=== PATIENT | female | born 1955 | race Caucasian/White ===

== ENCOUNTER 2024-12-30 06:07 | Emergency (ER) | payer MEDICARE, SELFPAY ==
--- NOTE | ~2024-12-30 | CT_ITS ---
CT HEAD NON-CONTRAST CT C-SPINE Clinical History: GLF 2200; intermitt RLE weakness 2 wks Comparison: None Technique: Unenhanced axial images skull base to vertex. Coronal, sagittal reformats. Axial images thoracic inlet to skull base. Sagittal and coronal reformats. CT images acquired with automatic exposure control for dose reduction DLP: 605 mGy-cm Findings: Head: Age-related atrophy. White matter changes, typically chronic microvascular ischemic disease. Lacune right basal ganglia. Lacune right centrum semiovale. Sulci, ventricles: Unremarkable. No intracerebral hemorrhage. No evidence acute territorial infarct. No mass effect, midline shift, intra-/extra-axial fluid collection. Bony calvarium intact. Visualized paranasal sinuses: Clear. Mastoid air cells: Clear. C-spine: No acute fracture or listhesis. Reversal of normal cervical lordosis. Moderate degenerative changes. Prevertebral soft tissues within normal limits. Visualized lung apices: Clear. Visualized thyroid: Unremarkable. No enlarged cervical nodes. IMPRESSION: HEAD: 1. No acute intracranial findings. C-SPINE: 1. No acute fracture. Reviewed, dictated and finalized at location R. ARY WORKER IMPRESSION: HEAD: 1. No acute intracranial findings. C-SPINE: 1. No acute fracture.
--- NOTE | ~2024-12-30 | XR_ITS ---
Examination: XR pelvis 1-2V Clinical History: GLF, Weakness Comparison: None Technique: AP pelvis Findings/impression: 1. No pelvic fracture identified. Reviewed, dictated and finalized at location R. OPERATIVE MANAGER
--- NOTE | ~2024-12-30 | XR_ITS ---
Examination: XR chest 1V portable Clinical History: GLF, Weakness Comparison: None Technique: Portable AP Findings: Heart size upper limit of normal. Lungs clear. No acute bony abnormality. IMPRESSION: 1. No acute cardiopulmonary findings given portable technique. Reviewed, dictated and finalized at location R. IVING LEAD
--- NOTE | ~2024-12-30 | XR_ITS ---
EXAMINATION: XR knee RT 3V DATE: 12/30/2024 08:01 INDICATION: Instability TECHNIQUE: Right knee x-rays were obtained. COMPARISON: None. FINDINGS: Moderate tricompartmental osteoarthritic degenerative changes. No acute or aggressive bony or soft tissue process seen; no fracture lucency or large suprapatellar effusion. IMPRESSION: 1. Moderate tricompartmental osteoarthritic degenerative changes. Reviewed, dictated and finalized at location A. LED NURSING PROFESSIONAL
[2024-12-30 06:08] VITALS: BP 181/110; PULSE 98; RESP 16; TEMP 36.6; O2SAT 99
--- NOTE | 2024-12-30 06:33 | ECG_ITS ---
Test Date: 2024-12-30 07:01:29 Measurements Intervals [place] Rate: 89 P: 67 MD: 159 QRS: 18 QRSD: 87 T: 52 QT: 364 QTc: 444 Interpretive Statements SINUS RHYTHM NONSPECIFIC T-WAVE ABNORMALITY Electronically Signed On 12-30-2024 10:04:22 STEWARD/STEWARDESS BANQUET by Colton Braun D.O
[2024-12-30 06:51] VITALS: BP 186/117; PULSE 85; RESP 22; O2SAT 99
[2024-12-30 06:56] LABS: Hematocrit 40.4 % (37.0-47.0); Hemoglobin 12.6 g/dL (12.0-15.0); Immature Granulocyte Percent A 0.4 % (0-0.5); Lymphocytes Absolute Auto 0.94 K/mm3 (0.9-3.2); Mean Corpuscular HGB Conc 31.2 g/dl (32-36); Mean Corpuscular Hemoglobin 28.8 pg (26-34); Mean Corpuscular Volume 92.2 fl (80-100); Nucleated Red Blood Cells Absolute Auto 0.000 K/mm3 (0.0-0.012); Nucleated Red Blood Cells Perc 0.0 % (0.0-0.2); Platelet Count Result 349 k/mm3 (150-375); Red Blood Count 4.38 M/mm3 (4.2-5.4); White Blood Count 14.6 K/mm3 (4.5-10.0)
[2024-12-30 07:08] LABS: Alanine Aminotransferase 20 U/L (6-35); Albumin Level 4.6 g/dL (3.5-5.1); Alkaline Phosphatase 114 U/L (38-126); Anion Gap 12 mmol/L (4-12); Aspartate Amino Transferase 25 U/L (14-36); Bilirubin,Total 0.7 mg/dL (0.2-1.3); Blood Urea Nitrogen 21 mg/dL (7-17); Calcium 9.6 mg/dL (8.4-10.2); Carbon Dioxide 24 mmol/L (22-30); Chloride 103 mmol/L (98-107); Creatine Kinase 152 U/L (30-135); Estimated CRCL calculation 39 ml/min; Estimated Glomerular Filt Rate 40; Glucose 109 mg/dL (65-110); Lipase 75 U/L (23-300); Potassium 3.7 mmol/L (3.4-5.0); Sodium 139 mmol/L (137-145); Total Protein 8.1 g/dL (6.3-8.2)
--- NOTE | 2024-12-30 07:08 | ED.FALL ---
HPI - Fall General Chief Complaint: Fall Stated Complaint: GLF S/P RLE WEAKNESS Time Seen by Provider: 12/30/24 07:00 Source: patient and family ([place]) Mode of arrival: ambulatory Limitations: no limitations History of Present Illness HPI Narrative: Patient presents with report of right leg weakness. At 2200 she had a GLF due to RLE weakness. She laid on the ground until her got home from shooting/hunting. She reports falling somewhat recently as well due to similar but at that time she had fallen in a different room of the house and there was an object she could use to help herself up. She has a history of chronic issues with her right knee due to injuries she sustained when she was younger. Lives with her who notes that at baseline she is quite sedentary, minimal ambulation. Often has to hold on to objects for balance. PCP had been Jeanie Estrada, now seeing SANTOSH Arlene Bruce but hasn't been seen in a year. Not on anticoagulation. No shortness of breath, diarrhea. Mild pain around the knee but she reports some instability at the joint, without significant popping/catching/locking. On losartan for HTN. No paresthesias. Did leave the house approximately 1 week ago to see a dentist. Related Data Allergies Allergy/AdvReac Type Severity Reaction Status Date / Time pollen extracts Allergy Severe Rash Verified 12/30/24 06:18 [facility] Past Medical History Medical History Thyroid disorder Kidney disease Hypertension Depression Asthma Allergies Family History Family History (System 10/24/20 @ 10:29 by Amanda Yo) Mother Hypertension Family history of osteoarthritis Father Cerebrovascular accident Family history of diabetes mellitus in first degree relative Grandparent Cerebrovascular accident Carcinoma of colon Social History Social History Alcohol intake: current Alcohol use details: Wine once a month Substance use: never Substance use type: does not use Do You Feel Safe in your Home?: Yes Lack of Transportation: No Lack of Food: Never True Current Housing: I Have Housing Concerned About Future Housing: No Difficulty Paying Gas/Electric Bills: No Difficulty Paying for Meds: No Currently Unemployed: No Education: High School Diploma/GED Living arrangements: with family Additional living arrangements comments: Occupation/Education: unemployed Exam Narrative: GENERAL: Well-appearing, well-nourished, and in no acute distress. HEAD: Normocephalic, atraumatic. EYES: Non injected, non icteric ENT: Nares clear, no rhinorrhea or epistaxis. Gross auditory acuity intact. NECK: Supple. No meningismus. CHEST: Speaking in full sentences. No respiratory distress. HEART: Regular rate and rhythm. . ABDOMEN: Soft, nondistended. EXTREMITIES: Normal range of motion. No lower extremity edema. Able to lift legs off bed. Mild posterior laxity/posterior drawer on right lower extremity assessment at knee SKIN: Warm, dry, no rash. NEURO: No focal deficits. Alert and oriented. Answering questions. Following commands. Normal speech without aphasia or dysarthria. Does repeat herself frequent and provides simple answers/responses PSYCH: Congruentl mood and affect. Course Vital Signs Vital signs: Vital Signs Temperature 97.8 F 12/30/24 06:08 Pulse Rate 98 12/30/24 06:08 Respiratory Rate 16 12/30/24 06:08 Blood Pressure 181/110 H 12/30/24 06:08 Pulse Oximetry 99 12/30/24 06:08 Oxygen Delivery Room Air 12/30/24 06:08 Temperature 97.8 F 12/30/24 06:08 Pulse Rate 91 12/30/24 07:40 Respiratory Rate 14 12/30/24 07:40 Blood Pressure 168/122 H 12/30/24 07:40 Pulse Oximetry 97 12/30/24 07:40 Oxygen Delivery Room Air 12/30/24 06:08 MDM - Fall MDM Narrative Medical decision making narrative: Patient presents after sustaining a GLF at 2200 and being unable to get up. CHronic issues with right lower extremity, particularly instability at the knee. Quite sedentary at baseline per . Did fall 2 weeks ago but in a different room and able to help herself up at that time due to surrounding objects. In the emergency department she is afebrile he is otherwise notable for hypertension. Creatinine 1.31 with no prior for comparison. Presumably CECILIA although EMR lists kidney disease in past medical history thus possibly CKD though unclear degree. Will give 1L IVF. Leukocytosis. CPK acceptable. Viral swab negative. Discussed with patient that I believe she would benefit from PT evaluation and advised she obtain referral for assessment and recommendations through PCP as she may benefit from outpatient PT versus home PT versus SNF. She does not seem to want to be placed in a SNF and for this reason, had not pursued extensive further discussion on admission for this assessment to be performed in the hospital. However, at the time discharge spouse raise concern about ability to take her home and care for her there. He did hope she could be able to ambulate 30 ft and she was able to perform this to the bathroom using some assistance. He notes that he was impressed with this. Upon return to the bed nurse notes that she did have some instability in her right leg but both were amenable with the initially stated discharge plan at this point. She would likely also benefit from further evaluation of rle as she might need injections, advanced imaging and, if fails conservative therapy, potentially surgical intervention later if deemed necessary. Differential Diagnosis Differential diagnosis: Likely other (Thyroid dysfunction, failure to thrive, rhabdomyolysis; internal derangement of knee (meniscal/ligamentous injury)) Lab Data Attestation: I reviewed the patient's lab results. 12/30/24 06:48 12/30/24 06:48 Labs: Lab Results 12/30/24 12/30/24 Range/Units 06:48 08:16 WBC 14.6 H (4.5-10.0) K/mm3 RBC 4.38 (4.2-5.4) M/mm3 Hgb 12.6 (12.0-15.0) g/dL Hct 40.4 (37.0-47.0) % MCV 92.2 (80-100) fl MCH 28.8 (26-34) pg MCHC 31.2 L (32-36) g/dl RDW 15.1 H (11.5-14.5) % Plt Count 349 (150-375) k/mm3 MPV 9.5 (7.4-10.4) fl Immature Gran % (Auto) 0.4 (0-0.5) % Neut % (Auto) 86.0 H (45.5-73.1) % Lymph % (Auto) 6.4 L (18.3-44.2) % Barnes % (Auto) 6.7 (2.6-8.5) % Eos % (Auto) 0.1 (0-4.4) % Baso % (Auto) 0.4 (0.2-1.2) % Lymph # (Auto) 0.94 (0.9-3.2) K/mm3 Barnes # (Auto) 1.0 H (0.1-0.6) K/mm3 Eos # (Auto) 0.0 (0-0.3) K/mm3 Baso # (Auto) 0.1 (0.0-0.1) K/mm3 Abs Immat Gran (auto) 0.06 H (0.00-0.031) K/mm3 Absolute Neuts (auto) 12.6 H (1.3-6.7) K/mm3 Absolute Nucleated RBC 0.000 (0.0-0.012) K/mm3 Nucleated RBC % 0.0 (0.0-0.2) % Sodium 139 (137-145) mmol/L Potassium 3.7 (3.4-5.0) mmol/L Chloride 103 (98-107) mmol/L Carbon Dioxide 24 (22-30) mmol/L Anion Gap 12 (4-12) mmol/L BUN 21 H (7-17) mg/dL Creatinine 1.31 H (0.7-1.0) mg/dL Estim Creat Clear Calc 39 ml/min Estimated GFR 40 L (59 - ) Glucose 109 (65-110) mg/dL Calcium 9.6 (8.4-10.2) mg/dL Total Bilirubin 0.7 (0.2-1.3) mg/dL AST 25 (14-36) U/L ALT 20 (6-35) U/L Alkaline Phosphatase 114 (38-126) U/L Total Creatine Kinase 152 H (30-135) U/L Total Protein 8.1 (6.3-8.2) g/dL Albumin 4.6 (3.5-5.1) g/dL Lipase 75 (23-300) U/L TSH 0.912 (0.465-4.680) uIU/mL Urine Color Yellow (Yellow) Urine Appearance Clear (Clear) Urine pH 5.5 (5.0-9.0) Ur Specific [place] 1.017 (1.001-1.035) Urine Protein 1+ H (Negative) mg/dL Urine Glucose (UA) Negative (Negative) mg/dL Urine Ketones 1+ H (Negative) mg/dL Ur Blood (Man) Negative (Negative) Urine Nitrate Negative (Negative) Urine Bilirubin Negative (Negative) Urine Urobilinogen 1.0 (<2.0) mg/dL Leukocyte Esterase Rfl Trace H (Negative) THAI/UL Urine RBC 0-2 (0-2) /hpf Urine WBC 0-5 (0-3) /hpf Ur Squamous Epith Cells None seen (Few) /hpf Urine Bacteria None seen /hpf Urine Casts 0-2 Influenza A (RT-PCR) Negative (Negative) Influenza B (RT-PCR) Negative (Negative) RSV (RT-PCR) Negative (Negative) SARS-CoV-2 RNA (RT-PCR) Negative (Negative) Imaging Data Radiologist's impression: IMPRESSION: 1. No acute cardiopulmonary findings given portable technique. Findings/impression: 1. No pelvic fracture identified. IMPRESSION: HEAD: 1. No acute intracranial findings. C-SPINE: 1. No acute fracture. IMPRESSION: 1. Moderate tricompartmental osteoarthritic degenerative changes. ECG Data EKG #1: Attestation: I personally reviewed and interpreted this ECG as follows: ECG completion date: 12/30/24 ECG completion time: 07:01 Interpretation: Normal sinus rhythm at a rate of 89 beats per minute. AR interval 159. QRS 87. QT/QTC 364/444. Good R-wave progression across the precordial leads. No T-wave inversion. Discharge Plan Discharge Clinical Impression: Chronic instability of right knee, Sedentary lifestyle, CECILIA (acute kidney injury), Leukocytosis, Tricompartment osteoarthritis of right knee, Fall Patient Disposition: Home Condition: Stable Instructions: Antibiotic Form, Acute Kidney Injury (DC), Osteoarthritis (DC), Fall Prevention for Older Adults (ED), Leukocytosis (ED), Benefits of an Active Lifestyle (ED) Additional Instructions: As we discussed, you had some mild kidney dysfunction and it is unclear whether this is baseline verses represents a a mild acute kidney injury, most commonly due to a small degree of dehydration. Received IV fluids. Otherwise you did not have any fractures/broken bones, evidence of stroke, brain bleed, etc. I do believe that you would benefit from physical therapy and recommend that your primary care provider order this, potentially for the services to be performed at home verses outpatient. You may also benefit from injections and/or alternative workup for the instability that you experience in your knee where arthritis was seen. Referral contact information for an orthopedic surgeon is listed below. Return to the emergency department any new or worsening symptoms. Continue taking your medications as prescribed in the interim. Patient Language: Estonian Prescriptions: No Action albuterol sulfate 90 mcg/actuation HFA aerosol inhaler 1 inh inhalation Q4H PRN (Reason: shortness of breath or wheezing) Qty: 8.5 0RF silver sulfadiazine [Silvadene] 1 % cream 1 applic topical DAILY Qty: 25 0RF Rx Instructions: apply a 1.5 mm thickness losartan 100 mg tablet 100 mg PO DAILY Qty: 90 3RF montelukast 10 mg tablet 10 mg PO DAILY Qty: 30 3RF hydrochlorothiazide 25 mg tablet 25 mg PO DAILY Qty: 30 3RF fluoxetine 40 mg capsule 40 mg PO DAILY Qty: 30 0RF levothyroxine 50 mcg tablet 50 mcg PO DAILY Qty: 30 0RF Follow-up/Referrals: Chanel Bruce PA-C [Physician Patent Litigation Associate, [facility]] Sean,MD Jeanie [Primary Care Provider, [facility]] Vidal Chacon MD [Physician, Orthopedics] Time of Disposition: 10:11
[2024-12-30 07:33] LABS: Influenza A QL RT-PCR Negative (Negative); Influenza B QL RT-PCR Negative (Negative); RSV RNA, RT-PCR Negative (Negative); SARS-CoV-2 RNA PCR Negative (Negative)
[2024-12-30 07:40] VITALS: BP 168/122; PULSE 91; RESP 14; O2SAT 97
[2024-12-30 08:09] LABS: Thyroid Stimulating Hormone 0.912 uIU/mL (0.465-4.680)
[2024-12-30] MEDS: SODIUM CHLORIDE 0.9% IV 1,000 ML 999 ML IV CONT (08:13)
[2024-12-30 08:27] LABS: Add Urine Microscopic? YES; Appearance Urine Clear (Clear); Glucose Urine UA Negative (Negative); Leukocyte Esterase Ur Trace LEU/UL (Negative); Nitrate Urine Negative (Negative); Non Pathogenic Casts 0-2; Specific Grav Ur 1.017 (1.001-1.035)
== END 2024-12-30 11:15 | disposition home or self-care (01) ==
PROVIDERS: Emergency Medicine; Emergency Provider Student in an Organized Health Care Education/Training Program; PCP Family Medicine
DX: M23.51 Chronic instability of knee, right knee (principal); N17.9 Acute kidney failure, unspecified; M17.11 Unilateral primary osteoarthritis, right knee; D72.829 Elevated white blood cell count, unspecified; Z72.3 Lack of physical exercise; I10 Essential (primary) hypertension; J45.909 Unspecified asthma, uncomplicated; E07.9 Disorder of thyroid, unspecified; N28.9 Disorder of kidney and ureter, unspecified; F32.A Depression, unspecified; Z20.822 Contact with and (suspected) exposure to COVID-19; R94.31 Abnormal electrocardiogram [ECG] [EKG]; W18.39XA Other fall on same level, initial encounter
CPT/HCPCS: 36415; 70450; 71045; 72125; 72170; 73562; 80053; 81001; 82550; 83690; 84443; 85025; 87637; 93005; 96360; 99284; J7030